=== PATIENT | male | born 1965 | race Caucasian/White ===

== ENCOUNTER 2016-10-20 11:12 | Emergency (ER) | payer OTHER ==
--- NOTE | ~2016-10-20 | MR134 ---
[facility] A Service of [facility] & [facility] RADIOLOGY TEXT RESULTS PATIENT: EVELIN GARRISON JR LOCATION: [facility] : 65 UNIT #: [id number] AGE: [address]: Harry Kaur MD SEX: M ORDER DR: [id number] [facility] [address] [place], [place] [address] [id number] E MR#: [id number] Acc #: [id number] NAME: EVELIN GARRISON JR : 1965 SEX: M STUDY DATE/TIME: 10/20/2016 12:38 UNIT: [facility] ROOM: STUDY DESCRIPTION: MR MRA Neck Wo Contrast Attending Physician: Harry Kaur M.D. Ordering Physician: Harry Kaur M.D. Primary Care Physician: Karyn House A.P.R.N. MRI CENTER REPORT This report is preliminary unless electronic signature is present. EXAM Cervical carotid MR angiogram HISTORY Heaviness in the left eye beginning 1 day ago. Previous history of stroke. TECHNIQUE MR angiographic imaging was performed across the carotid bifurcations with 2-D [id number]-rb-[id number] and 3-D MRA techniques. FINDINGS Both bifurcations are widely patent. There is no evidence of stenosis by NASCET criteria. Antegrade flow is seen in both vertebral arteries with the left vertebral being more dominant. IMPRESSION Normal examination. No evidence of stenosis by NASCET criteria. Dictated by... Jeff Barrera M.D. THIS IS AN ELECTRONICALLY VERIFIED REPORT Jeff Barrera M.D. at 10/20/2016 5:02 PM Kong TD: 10/20/2016 14:18 JOB #: [id number] MRI CENTER REPORT Page 1 of 1 COPY
--- NOTE | ~2016-10-20 | EKG ---
PATIENT: EVELIN GARRISON UNIT #: [id number] Ventricular Rate: 83 BPM Atrial Rate: 83 BPM P-R Interval: 172 ms QRS Duration: 90 ms Q-T Interval: 370 ms QTC Calculation(Bezet): 434 ms P Highland: 76 degrees Calculated R Highland: 50 degrees Calculated T Highland: 49 degrees Diagnosis Line: Normal sinus rhythm Diagnosis Line: Normal ECG Diagnosis Line: When compared with ECG of 28-FEB-2016 14:13, Diagnosis Line: No significant change was found Diagnosis Line: Confirmed by LYNNE CEDENO MD ([id number]) on Diagnosis Line: 10/20/2016 10:27:32 PM INTERPRETING : CELE
--- NOTE | ~2016-10-20 | MR122 ---
[facility] A Service of [facility] & [facility] RADIOLOGY TEXT RESULTS PATIENT: EVELIN GARRISON JR LOCATION: [facility] : 65 UNIT #: [id number] AGE: [address]: Harry Kaur MD SEX: M ORDER DR: [id number] [facility] [address] [place], [place] [address] [id number] E MR#: [id number] Acc #: [id number] NAME: EVELIN GARRISON : 1965 SEX: M STUDY DATE/TIME: 10/20/2016 12:30 UNIT: [facility] ROOM: STUDY DESCRIPTION: MR MRA Head Wo Contrast Attending Physician: Harry Kaur M.D. Ordering Physician: Harry Kaur M.D. Primary Care Physician: Karyn House A.P.R.N. MRI CENTER REPORT This report is preliminary unless electronic signature is present. EXAM Intracranial MR angiogram HISTORY Heaviness in the left eye since yesterday with previous history of stroke. TECHNIQUE MR angiographic imaging was performed from the skull base to the [place]. FINDINGS The MR angiogram is normal. There is no evidence of aneurysm vascular malformation or major branch vessel occlusion. No significant intracranial stenosis is seen. IMPRESSION Normal. STAT * RESULT Dictated by... Jeff Barrera M.D. THIS IS AN ELECTRONICALLY VERIFIED REPORT Jeff Barrera M.D. at 10/20/2016 5:02 PM Kong TD: 10/20/2016 13:23 JOB #: [id number] MRI CENTER REPORT Page 1 of 1 COPY
--- NOTE | ~2016-10-20 | MR18 ---
[facility] A Service of [facility] RADIOLOGY TEXT RESULTS PATIENT: EVELIN GARRISON JR LOCATION: [facility] : 65 UNIT #: [id number] AGE: [address]: Harry Kaur MD SEX: M ORDER DR: [id number] [facility] [address] [place], [place] [address] [id number] E MR#: [id number] Acc #: [id number] NAME: EVELIN GARRISON : 1965 SEX: M STUDY DATE/TIME: 10/20/2016 12:11 UNIT: [facility] ROOM: STUDY DESCRIPTION: MR Brain Wo Contrast Attending Physician: Harry Kaur M.D. Ordering Physician: Harry Kaur M.D. Primary Care Physician: Karyn House A.P.R.N. MRI CENTER REPORT This report is preliminary unless electronic signature is present. EXAM Brain MRI. HISTORY Heaviness in the left eye beginning yesterday. Previous history of stroke. TECHNIQUE Multiplanar imaging of the brain was performed with short and long TR. FINDINGS On diffusion weighted images, there is no evidence of abnormal restricted diffusion to suggest a recent infarct. The routine brain images show mild chronic ischemic changes in the periventricular deep white matter bilaterally. There is no evidence of mass lesion, hemorrhage, or edema. Temporal lobes are symmetric. Extraaxial structures are unremarkable. IMPRESSION Mild atrophy with mild chronic ischemic changes around the ventricles. Otherwise negative. STAT * RESULT Dictated by... Jeff Barrera M.D. THIS IS AN ELECTRONICALLY VERIFIED REPORT Jeff Barrera M.D. at 10/20/2016 5:02 PM BEAR/teressa TD: 10/20/2016 13:26 JOB #: [id number] [facility] A Service of [facility] RADIOLOGY TEXT RESULTS PATIENT: EVELIN GARRISON JR LOCATION: [facility] #: [id number] : [birth year] UNIT #: [id number] AGE: [address]: Harry Kaur MD SEX: M ORDER DR: MRI CENTER REPORT Page 1 of 1 COPY
[2016-10-20 11:05] LABS: BASOPHIL# 0.1 X10e3 (0-0.3); BASOPHIL% 0.9 % (0-2.5); EOSINOPHIL# 0.1 X10e3 (0-0.7); HEMATOCRIT 42.6 % (38.0-50.0); HEMOGLOBIN 14.5 gm/dL (13.0-16.0); LYMPHOCYTE# 2.1 X10e3 (1.0-3.5); LYMPHOCYTE% 28.9 % (17.0-45.0); MEAN CELL VOLUME 89.6 FL (83-96); MEAN CORPUSCULAR HEMOGLOBIN 30.4 PG (28-34); MEAN CORPUSCULAR HGB CONC 33.9 g/dL (30-36); MEAN PLATELET VOLUME 7.8 FL (6.5-11.5); MONOCYTE# 0.6 X10e3 (0-1.0); MONOCYTE% 8.3 % (3.0-12.0); NEUTROPHIL# 4.3 X10e3 (1.5-7.1); NEUTROPHIL% 59.9 % (40-75); PLATELET COUNT 209 X10e3 (140-420); RED BLOOD COUNT 4.76 X10e (3.90-5.60); RED CELL DISTRIBUTION WIDTH 13.7 % (11.0-15.5); WHITE BLOOD COUNT 7.2 X10e3 (4.0-10.5)
[2016-10-20 11:08] LABS: DIFF IND NO
[~2016-10-20 11:12] MED LIST: AMOXICILLIN PO; ANTI-FUNGAL15 GM TP; AUGMENTIN PO; BACTRIM DS TABL1 TA1 PO; BYETTA10 MCG/0.0 INJ; FLEXERIL; FLEXERIL PO; FLEXERIL10 MG PO; FLONASE16 GM; GLUCOPHAGE XR500 MG PO; GLUCOPHAGE500 MG PO; HUMALOG MIX 75/10 ML SUBQ; HUMALOG100 U/ML SUBQ; HUMULIN 70/30 V10 ML; IBUPROFEN PO; IBUPROFEN800 MG PO; KEFLEX PO; LORTAB 7.5-5001 TAB PO; METFORMIN HCL1000 M1 PO; PRILOSEC40 MG PO; UNKNOWN INSULIN; VICODIN 5/500 T1 TAB PO; ZANTAC150 MG PO
[2016-10-20 11:23] LABS: POC - CKMB 1.8 ng/mL (0.0-7.9); POC - TROPONIN <0.05 ng/mL (<=0.05)
[2016-10-20 11:26] LABS: INR 1.1; PARTIAL THROMBOPLASTIN TIME 26.1 SECONDS (23.5-31.3); PROTHROMBIN TIME (PATIENT) 11.1 SECONDS (9.6-11.5)
[2016-10-20 12:02] LABS: ALBUMIN SERUM 3.8 g/dL (3.5-5.0); BILIRUBIN, DIRECT 0.1 mg/dL (0.0-0.2); BILIRUBIN,INDIRECT 0.6 mg/dL (0.0-0.9); BILIRUBIN,TOTAL 0.7 mg/dL (0.2-2.0); CALCIUM SERUM 8.9 mg/dL (8.4-10.2); GLOM FILT RATE Estimated 86.8 mL/min (>60); POTASSIUM 4.8 mmol/L (3.5-5.1); PROTEIN TOTAL SERUM 7.2 g/dL (6.0-8.3)
== END 2016-10-20 13:42 | disposition home or self-care (01) ==
LOC: CED 11:12
PROVIDERS: Emergency Medicine
DX: G45.9 Transient cerebral ischemic attack, unspecified (principal); E11.9 Type 2 diabetes mellitus without complications; Z88.8 Allergy status to other drugs, medicaments and biological substances
CPT/HCPCS: 70544; 70547; 70551; 80048; 80076; 82553; 82947; 84484; 85025; 85610; 85730; 93005; 99291

== ENCOUNTER → 2016-12-08 | Outpatient (CLI) | payer OTHER ==
[~2016-12-08] MED LIST changes: +ACETAMINOPHEN650 M1 PO; +BENZONATATE200 M1 PO; +CLOPIDOGREL75 MG PO; +DOXYCYCLINE HY100 M4 PO; +ESCITALOPRAM OX20 MG PO; +GLUCOTROL PO; +INVOKANA300 MG PO; +MELOXICAM15 MG PO; +METFORMIN HCL500 M1 PO; +NEURONTIN100 MG PO; +PRO-AMATINE5 M2 PO; +TRADJENTA5 MG PO; +ZOCOR10 MG PO; +ZOFRAN PO
--- NOTE | ~2016-12-08 | CR127 ---
[facility] A [facility] of [facility] RADIOLOGY TEXT RESULTS PATIENT: EVELIN GARRISON JR LOCATION: [facility] : 65 UNIT #: [id number] AGE: [address]: RUSS VALENTINO APRN SEX: M ORDER DR: [id number] [facility] [address] [place], [place] [address] [id number] O MR#: [id number] Acc #: [id number] NAME: EVELIN GARRISON : 1965 SEX: M STUDY DATE/TIME: 12/08/2016 13:00 UNIT: [facility] ROOM: STUDY DESCRIPTION: CR Foot Complete Min 3 View Rt Attending Physician: Russ Valentino R.N. Referring Physician: Russ Valentino R.N. Ordering Physician: Russ Valentino R.N. Primary Care Physician: Russ Valentino R.N. MEDICAL IMAGING REPORT This report is preliminary unless electronic signature is present EXAM Right foot 3, views, 12/08/16, 1300 hours. CLINICAL HISTORY Pain in lateral side of right foot for 3 days. History of previous needle stuck in foot. No new injury. COMPARISON Right ankle film, 01/25/16. No prior right foot film. FINDINGS AP, lateral and oblique views demonstrate overall normal bone density. There is a metallic linear foreign body measuring 1 mm x 10 mm in the plantar soft tissues deep to the head of the first metatarsal adjacent to the sesamoid bones which by history is chronic. There is no acute fracture. Question is raised of mild periosteal thickening along the proximal shaft of the fourth metatarsal which could indicate a healed or healing stress fracture. IMPRESSION 1. There is a 1 mm x 10 mm metallic foreign body in the plantar soft tissues adjacent to the distal first metatarsal which by history is chronic. 2. There is no definite fracture or dislocation. 3. Question periosteal thickening along the proximal shaft of the fourth metatarsal which could indicate a healed or healing stress fracture. Dictated by... Marcia Almonte M.D. THIS IS AN ELECTRONICALLY VERIFIED REPORT Marcia Almonte M.D. at 12/08/2016 8:03 PM [facility] A Service of [facility] RADIOLOGY TEXT RESULTS PATIENT: EVELIN GARRISON JR LOCATION: [facility] #: [id number] : [birth year] UNIT #: [id number] AGE: [address]: RUSS VALENTINO APRN SEX: M ORDER DR: LOREN/adebayo TD: 12/08/2016 15:12 JOB #: [id number] MEDICAL IMAGING REPORT Page 1 of 1 COPY
== END | disposition home or self-care (01) ==
LOC: CRAD 12:22
DX: M79.671 Pain in right foot (principal); M79.5 Residual foreign body in soft tissue
CPT/HCPCS: 73630

== ENCOUNTER 2017-01-20 13:09 | Emergency (ER) | payer OTHER ==
[~2017-01-20] VITALS: Ht 167.6 cm; Wt 113.4 kg
--- NOTE | ~2017-01-20 | CR63 ---
[facility] A Service of [facility] & [facility] RADIOLOGY TEXT RESULTS PATIENT: EVELIN GARRISON JR LOCATION: [facility] : 65 UNIT #: [id number] AGE: [address]: Estela Sanderson APRN SEX: M ORDER DR: [id number] [facility] [address] [place], [place] [address] [id number] E MR#: [id number] Acc #: [id number] NAME: EVELIN GARRISON JR : 1965 SEX: M STUDY DATE/TIME: 01/20/2017 UNIT: [facility] ROOM: STUDY DESCRIPTION: CR Chest 2 View Attending Physician: Estela Sanderson A.P.R.N. Ordering Physician: Ed Doctor [id number] [facility] Primary Care Physician: Katie Valentino MEDICAL IMAGING REPORT This report is preliminary unless electronic signature is present EXAM Chest 2 views 01/20/2017 1359 hours HISTORY 51-year-old man with 3-week history of cough, shortness of air and congestion. COMPARISON 06/22/2016 FINDINGS Upright PA and lateral views of the chest are performed. The lateral view is degraded by motion. The cardiac, mediastinal and hilar contours are normal. The lungs are clear and there are no effusions. IMPRESSION 1. The lateral view is degraded by motion. 2. There are no acute cardiopulmonary findings. The lungs are clear and there are no effusions. Dictated by... Marcia Almonte M.D. THIS IS AN ELECTRONICALLY VERIFIED REPORT Marcia Almonte M.D. at 01/22/2017 9:24 AM M/manjula TD: 01/20/2017 15:20 JOB #: [id number] MEDICAL IMAGING REPORT Page 1 of 1 COPY
[~2017-01-20 13:09] MED LIST changes: -ACETAMINOPHEN650 M1 PO; -BENZONATATE200 M1 PO; -CLOPIDOGREL75 MG PO; -DOXYCYCLINE HY100 M4 PO; -ESCITALOPRAM OX20 MG PO; -GLUCOTROL PO; -INVOKANA300 MG PO; -MELOXICAM15 MG PO; -METFORMIN HCL500 M1 PO; -NEURONTIN100 MG PO; -PRO-AMATINE5 M2 PO; -TRADJENTA5 MG PO; -ZOCOR10 MG PO; -ZOFRAN PO
[2017-01-20 13:41] LABS: INFLUENZA A NEG (NEG); INFLUENZA B NEG (NEG)
== END 2017-01-20 14:45 | disposition home or self-care (01) ==
LOC: CED 13:09 → CFTX 13:09
PROVIDERS: Nurse Practitioner
DX: J06.9 Acute upper respiratory infection, unspecified (principal); T16.2XXA Foreign body in left ear, initial encounter; X58.XXXA Exposure to other specified factors, initial encounter; Y92.9 Unspecified place or not applicable; K42.9 Umbilical hernia without obstruction or gangrene; Z98.890 Other specified postprocedural states; Z79.82 Long term (current) use of aspirin; Z88.8 Allergy status to other drugs, medicaments and biological substances; Z79.899 Other long term (current) drug therapy
CPT/HCPCS: 69200; 71020; 87651; 87804; 94640; 99283

== ENCOUNTER 2017-02-27 17:02 | Inpatient (IN) | payer OTHER ==
[~2017-02-27] VITALS: Ht 170.2 cm; Wt 117.6 kg
--- NOTE | ~2017-02-27 | EKG ---
PATIENT: EVELIN GARRISON UNIT #: [id number] Ventricular Rate: 108 BPM Atrial Rate: 108 BPM P-R Interval: 184 ms QRS Duration: 90 ms Q-T Interval: 346 ms QTC Calculation(Bezet): 463 ms P Roff: 56 degrees Calculated R Roff: 52 degrees Calculated T Roff: 51 degrees Diagnosis Line: Sinus tachycardia Diagnosis Line: Otherwise normal ECG Diagnosis Line: When compared with ECG of 20-OCT-2016 10:52, Diagnosis Line: No significant change was found Diagnosis Line: Confirmed by CLARK DUVAL MD ([id number]) on 03/01/2017 Diagnosis Line: 1:59:26 PM INTERPRETING MD: MUKUND STALLINGS
--- NOTE | ~2017-02-27 | HP ---
Unit #: [id number] #: [id number] Patient: EVELIN GARRISON JR [id number] [address] [place], [place] [address] [id number] I MR#: [id number] NAME: EVELIN GARRISON JR ROOM: 304 Age: 51 Sex: M Admission Date: 02/27/2017 : 1965 Attending Physician: Elías Ortega M.D. Primary Care Physician: Katie Valentino HISTORY AND PHYSICAL CHIEF COMPLAINT Chills, shaking, fever, hypotension. DISCUSSION This is a 51-year-old gentleman who has a past medical history significant for history of left sided frontal stroke with right side weakness, diabetes, orthostatic hypotension, dyslipidemia, obesity, anxiety, depression, obstructive sleep apnea. He presented to emergency room with chief complaint of having shaking and chills. He said this morning he feels some stomach upset, then he went to sleep and then woke up with shaking and chills and he was brought to emergency room and eventually, the blood pressure was 107/92. Eventually, he has a fever of 101 in the emergency room and blood pressure dropped in the 80s and he has some redness and pain. Also complaining of right foot pain but denies cough, denies dysuria, sore throat, headache or any other complaint. PAST MEDICAL HISTORY 1. History of asthma. 2. History of left side frontal stroke with right side weakness. 3. Diabetes. 4. Orthostatic hypotension. 5. Dyslipidemia. 6. History of sleep apnea which has been resolved since he lost more than 100 pounds. 7. Anxiety/depression. PAST SURGICAL HISTORY 1. History of EGD and colonoscopy. 2. Circumcision. 3. Umbilical hernia repair. ALLERGIES Allergic to diphenhydramine with sleepiness for several days. SOCIAL HISTORY He lives at home. He denies alcohol. Denied smoking or any illicit drug use. MEDICATIONS Medication from home is followin. Zocor 10 mg at bedtime. 2. Meloxicam 15 mg daily. 3. Neurontin 100 mg 3x daily. 4. Benzonatate 200 mg q.8 hour p.r.n. Unit #: [id number] #: [id number] Patient: EVELIN GARRISON JR 5. Zofran 4 mg 3x a day p.r.n. 6. Metformin 500 twice a day. 7. Plavix 75 mg daily. 8. Invokana 300 mg daily. 9. Midodrine 5 mg 3x a day. 10. Tradjenta 5 mg daily. 11. Lexapro 20 mg daily. 12. Glipizide 5 mg twice a day. FAMILY HISTORY Noncontributory. REVIEW OF SYSTEMS All review of system negative except in History of Present Illness. PHYSICAL EXAMINATION On examination, middle aged man lying in the bed comfortably, currently not in any distress. VITAL SIGNS: Current vitals are following - temperature is maximum 101, heart rate 110, respiratory 20, blood pressure 107/92. GENERAL: On general examination, he is alert, oriented x3, comfortable, not in any distress. HEENT: Pupils equal, reactive to light and accommodation. Head is normocephalic. No icterus. NECK: Supple. No JVD, no thyromegaly. LUNGS: Clear to auscultation, no rhonchi, no wheezing. HEART: S1, S2. Regular rate and rhythm. ABDOMEN: Soft, nontender, nondistended. Bowel sound positive. EXTREMITIES: Right foot on the dorsal aspect positive mild erythema and warm but no edema. Positive posterior tibial and dorsalis pedis pulses. NEURO: Mild right side weakness which is chronic. Cranial nerves II-XII intact. PSYCH: Normal mood/affect. SKIN: Warm and dry. DIAGNOSTIC STUDIES LABORATORY: Laboratory workup is following - UA is negative. Lactic acid level 1.2. Troponin less than 0.05. Chemistry - sodium 137, potassium 3.8, chloride 104, glucose 150, BUN 16, creatinine 1.1. LFT within normal limit. White count 15,000, hemoglobin 14, hematocrit 40, platelet 202. INR is 1.1. Troponin less than 0.30. IMAGING: Chest x-ray negative. CT head is negative. ASSESSMENT AND PLAN 1. Fever with hypotension, most likely is from right foot cellulitis which is early. Will start the patient on Zosyn and vancomycin and monitor. 2. Will get followup x-ray of right foot. Unit #: [id number] #: [id number] Patient: MELIEVELIN JR 3. Diabetes. Continue home medication. Place on sliding scale. 4. History of left side frontal stroke with mild right side weakness. 5. Dyslipidemia. 6. Anxiety and depression. 7. History of orthostatic hypotension. 8. Obstructive sleep apnea which has been resolved with weight loss. Currently not on CPAP. 9. Obesity. 10. Hypotension. Will place on IV fluid normal saline and monitor. 11. DVT prophylaxis. Will place the patient on Lovenox. Dictated by Lilian Palma/shady TD: 02/28/2017 10:43 JOB #: [id number] HISTORY AND PHYSICAL Page 1 of 1 X X HISTORY AND PHYSICAL
--- NOTE | ~2017-02-27 | DS ---
Unit #: [id number] #: [id number] Patient: EVELIN GARRISON JR [id number] [address] [address] [id number] I MR#: [id number] NAME: EVELIN GARRISON JR ROOM: 304 Age: 51 Sex: M Admission Date: 02/27/2017 : 1965 Discharge Date: 03/01/2017 Attending Physician: Diego Torres M.D. Primary Care Physician: Katie Valentino DISCHARGE SUMMARY PRIMARY DIAGNOSIS Severe sepsis secondary to a right foot cellulitis, dorsolateral aspect. SECONDARY DIAGNOSES 1. Diabetes mellitus type 2. 2. History of left side stroke with right hemiparesis. 3. History of orthostatic hypotension. 4. History of obstructive sleep apnea, reportedly resolved. 5. Morbid obesity. 6. History of retained needle fragment in the plantar portion of his foot near the second metatarsal on the opposite side of the patient's cellulitis. This has been present since childhood, per patient. HOSPITAL COURSE Patient was admitted to the hospital, was treated with vancomycin and Zosyn with good initial response. No cultures were done. The patient's fevers improved as did his white blood cell count and the patient's foot swelling and redness were both improving markedly. Patient is being switched to doxycycline for an additional eight days with plans to follow up with his PCP next week. He was given strict instructions to return to the emergency room if he has recurrent fevers, chills or worsening foot redness. Imaging done during this hospitalization includes plain x-ray of the right foot 3 views, CT of the head and portable chest x-ray. DISCHARGE DISPOSITION To home. DISCHARGE STATUS Stable. DISCHARGE ACTIVITY Ad raz with the caveat that the patient should elevate his foot for an hour 2x daily for the next week. DISCHARGE DIET Diabetic diet. DISCHARGE MEDICATIONS 1. Tylenol 650 p.o. q.6 hours p.r.n. for pain. 2. Neurontin 100 mg p.o. t.i.d. 3. Escitalopram 20 mg p.o. daily. 4. Metformin 500 mg p.o. b.i.d. Unit #: [id number] #: [id number] Patient: EVELIN GARRISON JR 5. Zofran 4 mg p.o. t.i.d. p.r.n. nausea. 6. Tessalon Perles 200 mg p.o. q.8 hours p.r.n. cough. 7. Tradjenta 5 mg p.o. daily. 8. Zocor 10 mg p.o. q. h.s. 9. Midodrine 5 mg p.o. t.i.d. 10. Mobic 15 mg p.o. daily. 11. Plavix 75 mg p.o. daily. 12. Invokana 300 mg p.o. daily. 13. Glucotrol 5 mg p.o. b.i.d. 14. Doxycycline 100 mg p.o. b.i.d. for eight days. The only new medication is the doxycycline. The remainder are continuations of home medications. Dictated by... Diego Torres M.D. KERLINE/shady TD: 03/04/2017 06:01 JOB #: [id number] DISCHARGE SUMMARY Page 1 of 1 X Diego Torres MD X DISCHARGE SUMMARY
--- NOTE | ~2017-02-27 | CT71 ---
[facility] A Service of [facility] RADIOLOGY TEXT RESULTS PATIENT: EVELIN GARRISON JR LOCATION: [facility] 304-01 : [birth year] UNIT #: [id number] AGE: [address]: Elías rOtega MD SEX: M ORDER DR: [id number] [facility] [address] [place] [address] [place], [place] [address] [id number] I MR#: [id number] Acc #: [id number] NAME: EVELIN GARRISON JR : 1965 SEX: M STUDY DATE/TIME: 02/27/2017 18:02 UNIT: [address] ROOM: [facility] STUDY DESCRIPTION: CT Head Wo Contrast Attending Physician: Elías Ortega M.D. Ordering Physician: Andrea Mcnamara M.D. Primary Care Physician: Katie Valentino Aprn MEDICAL IMAGING REPORT This report is preliminary unless electronic signature is present EXAM Head CT no contrast 02/27/2017 INDICATION Shaking and jerking that started prior to arrival today, stroke last year, same symptoms today. Right-sided deficit from prior stroke. TECHNIQUE Noncontrast CT brain was performed. Comparison 06/24/2016. This CT examination was performed with one or more of the following radiation dose reduction techniques: automatic exposure control, adjustment of mA and/or kV according to patient size, and iterative reconstruction. FINDINGS There is mild generalized cerebral atrophy. Sulci and ventricles otherwise unremarkable. No midline shift. No evidence of acute intracranial hemorrhage. There is no mass, mass effect or edema to suggest acute infarct. No extraaxial fluid collections are present. Globes are intact. Bones are intact. Mild chronic-appearing maxillary sinus disease. IMPRESSION Mild atrophy. Otherwise negative noncontrast CT of the brain and no significant change. Dictated by... Barry Lopez M.D. THIS IS AN ELECTRONICALLY VERIFIED REPORT Barry Lopez M.D. at 02/28/2017 11:23 PM TOÑA/pamela [facility] A Service of [facility] RADIOLOGY TEXT RESULTS PATIENT: EVELIN GARRISON JR LOCATION: [facility] 304-01 : [birth year] UNIT #: [id number] AGE: [address]: Elías Ortega MD SEX: M ORDER DR: TD: 02/28/2017 08:49 JOB #: [id number] MEDICAL IMAGING REPORT Page 1 of 1 COPY
--- NOTE | ~2017-02-27 | CO ---
Unit #: [id number] #: [id number] Patient: EVELIN GARRISON JR [id number] [facility] [address] [place], [place] [address] [id number] I MR#: [id number] NAME: EVELIN GARRISON JR ROOM: 304 Age: 51 Sex: M Admission Date: 02/27/2017 : 1965 Attending Physician: Diego Torres M.D. Primary Care Physician: Katie Valentino Aprn Consultation Date: 02/28/2017 CONSULTATION REPORT REASON FOR CONSULTATION Depression, anxiety. HISTORY OF PRESENT ILLNESS Mr. Evelin Garrison is a 51-year-old male seen in room 304, bed 1 on February 28, 2017 at [facility]. Patient reported that he was admitted due to chills, shakes, fever, and hypotension. Patient dressed casually, lying comfortably in bed. The patient reported that he has an infection in his right foot. Patient denied any suicidal or homicidal ideation. Denied any psychotic symptoms, but reported feeling sad, depressed. Patient currently on Lexapro 20 mg daily for depression. Reported having a lot of problems with anxiety. PAST PSYCHIATRIC HISTORY Remarkable for history of depression, anxiety. No history of any suicide attempt or any inpatient treatment. MEDICAL HISTORY Patient has a history of asthma, left-sided frontal stroke with right-sided weakness, diabetes, orthostatic hypotension, dyslipidemia, history of sleep apnea. MEDICATION HISTORY 1. Zocor. 2. Meloxicam. 3. Neurontin. 4. Zofran. 5. Metformin. 6. Plavix. 7. Invokana. 8. Lexapro 20 mg daily. 9. Glipizide. ALLERGIES Diphenhydramine. FAMILY HISTORY AND SOCIAL HISTORY Patient has a good support system. No history of any abuse. Patient denied any use of any alcohol or drugs. REVIEW OF SYSTEMS Complete review of systems is unremarkable. Patient's vital signs are 98.4, 81, 16, 125/84. Oxygen saturation 97%. Unit #: [id number] #: [id number] Patient: EVELIN GARRISON JR MENTAL STATUS EXAMINATION General appearance: Patient dressed casually in hospital attire, lying comfortably in bed. Attention span and concentration fair. Speech regular rate, coherent. Oriented in time, place, and person. Mood and affect sad, dysphoric, anxious. Thought process coherent. Thought content: Patient denied any thoughts of harming self or others or any psychotic symptoms but reported having anxiety. Recent and remote memory fair. Language intact. Fund of knowledge fair. Insight and judgment fair to slightly impaired. DIAGNOSES PSYCHIATRIC: Major depressive disorder, recurrent, severe, F33.2. Anxiety disorder, not otherwise specified, F40.01. SECONDARY DIAGNOSIS: Deferred. MEDICAL DIAGNOSIS: Please refer to H and P. STRESSORS: Psychosocial stressors. ASSESSMENT AND PLAN 1. Supportive psychotherapy and psychoeducation provided to patient. 2. Educated about benefits and side effects of medications and course and prognosis of illness. 3. Advised to continue with Lexapro and add Vistaril 25 mg three times a day for anxiety. If needed, consider further adjustment of medication. Please feel free to call if any questions, . Also, advised patient to follow up in outpatient program. Also, given crisis line number, . Dictated by... Neno Turner M.D. PARAM/zulema TD: 03/02/2017 09:25 JOB #: [id number] CONSULTATION REPORT Page 1 of 1 X Neno Turner MD CONSULTATION REPORT
--- NOTE | ~2017-02-27 | CR127 ---
[facility] A Service of [facility] RADIOLOGY TEXT RESULTS PATIENT: EVELIN GARRISON JR LOCATION: [facility] 304-01 : [birth year] UNIT #: [id number] AGE: [address]: Elías Ortega MD SEX: M ORDER DR: [id number] [facility]. [place], [place] [address] [id number] MR#: [id number] Acc #: [id number] NAME: EVELIN GARRISON JR : 1965 SEX: M STUDY DATE/TIME: 02/27/2017 21:02 UNIT: [address] ROOM: [facility] STUDY DESCRIPTION: CR Foot Complete Min 3 View Rt Attending Physician: Elías Ortega M.D. Ordering Physician: Andrea Mcnamara M.D. Primary Care Physician: Katie Valentino MEDICAL IMAGING REPORT This report is preliminary unless electronic signature is present EXAM Right foot, 02/27/2017 INDICATIONS Swelling and redness today being treated for the past 3 months. TECHNIQUE Three views of the right foot compared with 12/08/16 FINDINGS Redemonstration of a metallic retained foreign body in the plantar soft tissues adjacent to the head of the second metatarsal measuring up to about 10 mm. No acute fracture. There are degenerative changes in the midfoot. There is mild dorsal soft tissue swelling. Atherosclerotic calcifications are present. Calcaneal spur. IMPRESSION 1. No acute fracture. 2. Retained opaque foreign body in the plantar soft tissues measuring 10 mm unchanged. 3. Degenerative changes in the midfoot and dorsal soft tissue swelling to a mild degree. 4. Atherosclerotic disease. Dictated by... Barry Lopez M.D. THIS IS AN ELECTRONICALLY VERIFIED REPORT Barry Lopez M.D. at 02/28/2017 11:31 PM Mayi TD: 02/28/2017 12:28 [facility] A Service of [facility] RADIOLOGY TEXT RESULTS PATIENT: EVELIN GARRISON JR LOCATION: [facility] 304-01 : [birth year] UNIT #: [id number] AGE: [address]: Elías Ortega MD SEX: M ORDER DR: JOB #: [id number] MEDICAL IMAGING REPORT Page 1 of 1 COPY
--- NOTE | ~2017-02-27 | CR72 ---
[facility] A Service of [facility] & [facility] RADIOLOGY TEXT RESULTS PATIENT: EVELIN GARRISON JR LOCATION: [facility] : [birth year] UNIT #: [id number] AGE: [address]: Elías Ortega MD SEX: M ORDER DR: [id number] [facility]. [place], [place] [address] [id number] I MR#: [id number] Acc #: [id number] NAME: EVELIN GARRISON JR : 1965 SEX: M STUDY DATE/TIME: 02/27/2017 17:47 UNIT: [facility] PCU ROOM: [facility] STUDY DESCRIPTION: CR Chest Single View Portable Attending Physician: Elías Ortega M.D. Ordering Physician: Andrea Mcnamara M.D. Primary Care Physician: Katie Valentino Aprn MEDICAL IMAGING REPORT This report is preliminary unless electronic signature is present EXAM Frontal chest 02/27/2017 INDICATION 51-year-old male with shaking, chest pain, mild congestion, history of stroke, symptoms began 3 hours ago. TECHNIQUE Frontal chest compared with 01/20/2017. FINDINGS PA and lateral examination of the chest upright shows a good expansion of the parenchyma with a normal distribution of the pulmonary vascularity. There is no indication of congestion, effusion, infiltrate, tumor, or nodular density. The pleural reflections and diaphragmatic contours are normal. The cardiac silhouette and mediastinal anatomy is within normal limits. IMPRESSION Normal chest. Dictated by... Barry Lopez M.D. THIS IS AN ELECTRONICALLY VERIFIED REPORT Barry Lopez M.D. at 02/28/2017 11:23 PM TOÑA/pamela TD: 02/28/2017 08:57 JOB #: [id number] MEDICAL IMAGING REPORT [facility] A Service of [facility] & [facility] RADIOLOGY TEXT RESULTS PATIENT: EVELIN GARRISON JR LOCATION: [facility] : 65 UNIT #: [id number] AGE: [address]: Elías Ortega MD SEX: M ORDER DR: Page 1 of 1 COPY
[2017-02-27 18:02] LABS: POC - CKMB 2.1 ng/mL (0.0-7.9); POC - TROPONIN <0.05 ng/mL (<=0.05)
[2017-02-27 18:05] LABS: BASOPHIL# 0.1 X10e3 (0-0.3); BASOPHIL% 0.4 % (0-2.5); EOSINOPHIL# 0.1 X10e3 (0-0.7); EOSINOPHIL% 0.5 % (0.0-7.0); HEMATOCRIT 40.6 % (38.0-50.0); LYMPHOCYTE# 1.2 X10e3 (1.0-3.5); LYMPHOCYTE% 7.7 % (17.0-45.0); MEAN CELL VOLUME 89.4 FL (83-96); MEAN CORPUSCULAR HEMOGLOBIN 30.8 PG (28-34); MEAN CORPUSCULAR HGB CONC 34.5 g/dL (30-36); MEAN PLATELET VOLUME 8.1 FL (6.5-11.5); MONOCYTE# 1.4 X10e3 (0-1.0); MONOCYTE% 8.8 % (3.0-12.0); NEUTROPHIL# 12.6 X10e3 (1.5-7.1); NEUTROPHIL% 82.6 % (40-75); PLATELET COUNT 202 X10e3 (140-420); RED BLOOD COUNT 4.54 X10e (3.90-5.60); RED CELL DISTRIBUTION WIDTH 13.2 % (11.0-15.5); WHITE BLOOD COUNT 15.3 X10e3 (4.0-10.5)
[2017-02-27 18:06] LABS: DIFF IND YES
[2017-02-27 18:12] LABS: INR 1.1; PARTIAL THROMBOPLASTIN TIME 26.3 SECONDS (23.5-31.3); PROTHROMBIN TIME (PATIENT) 12.3 SECONDS (10.0-11.7)
[2017-02-27 18:17] LABS: PLATELET ESTIMATE NORMAL (NORMAL); RBC NORMAL YES
[2017-02-27 18:21] LABS: ALBUMIN SERUM 3.8 g/dL (3.5-5.0); BILIRUBIN, DIRECT 0.2 mg/dL (0.0-0.2); BILIRUBIN,INDIRECT 0.7 mg/dL (0.0-0.9); BILIRUBIN,TOTAL 0.9 mg/dL (0.2-2.0); BUN/CREATININE RATIO 14.54; CALCIUM SERUM 8.7 mg/dL (8.4-10.2); CREATININE SERUM 1.1 mg/dL (0.6-1.4); GLOM FILT RATE Estimated 77.3 mL/min (>60); POTASSIUM 3.8 mmol/L (3.5-5.1); PROTEIN TOTAL SERUM 6.8 g/dL (6.0-8.3)
[2017-02-27 20:09] LABS: POC - CKMB <1.0 ng/mL (0.0-7.9); POC - TROPONIN <0.05 ng/mL (<=0.05)
[2017-02-27 20:32] LABS: URINE SOURCE CLEAN CATCH
[2017-02-27] MEDS ORDERED: INVOKANA300 MG PO (20:37)
[2017-02-27] MEDS ORDERED: PRO-AMATINE5 M2 PO (20:38)
[2017-02-27 20:39] LABS: URINE APPEARANCE CLEAR; URINE BILIRUBIN NEG (NEG); URINE BLOOD NEG (NEG); URINE COLOR YELLOW; URINE GLUCOSE >1000 MG/DL (NEG); URINE KETONE NEG (NEG); URINE LEUKOCYTE ESTERASE NEG (NEG); URINE NITRATE NEG (NEG); URINE PROTEIN NEG (NEG); URINE SPECIFIC GRAVITY 1.033 (1.003-1.035); URINE UROBILINOGEN 0.2 MG/DL (NEG)
[2017-02-27] MEDS ORDERED: TRADJENTA5 MG PO (20:39)
[2017-02-27] MEDS ORDERED: GLUCOTROL PO (20:39)
[2017-02-27] MEDS ORDERED: ESCITALOPRAM OX20 MG PO (20:39)
[2017-02-27] MEDS ORDERED: NEURONTIN100 MG PO (20:40)
[2017-02-27] MEDS ORDERED: BENZONATATE200 M1 PO (20:41)
[2017-02-27] MEDS ORDERED: METFORMIN HCL500 M1 PO (20:42)
[2017-02-27] MEDS ORDERED: ZOFRAN PO (20:42)
[2017-02-27 20:43] LABS: CULTURE INDICATED? NO
[2017-02-27] MEDS ORDERED: CLOPIDOGREL75 MG PO (20:43)
[2017-02-27] MEDS ORDERED: ZOCOR10 MG PO (20:43)
[2017-02-27] MEDS ORDERED: MELOXICAM15 MG PO (20:44)
[2017-02-28 06:58] LABS: BASOPHIL# 0.1 X10e3 (0-0.3); BASOPHIL% 0.6 % (0-2.5); EOSINOPHIL# 0.1 X10e3 (0-0.7); EOSINOPHIL% 0.7 % (0.0-7.0); HEMATOCRIT 36.7 % (38.0-50.0); HEMOGLOBIN 12.6 gm/dL (13.0-16.0); LYMPHOCYTE# 2.2 X10e3 (1.0-3.5); LYMPHOCYTE% 16.9 % (17.0-45.0); MEAN CORPUSCULAR HGB CONC 34.5 g/dL (30-36); MEAN PLATELET VOLUME 7.8 FL (6.5-11.5); MONOCYTE# 1.6 X10e3 (0-1.0); MONOCYTE% 12.3 % (3.0-12.0); NEUTROPHIL# 8.9 X10e3 (1.5-7.1); NEUTROPHIL% 69.5 % (40-75); PLATELET COUNT 180 X10e3 (140-420); RED BLOOD COUNT 4.07 X10e (3.90-5.60); RED CELL DISTRIBUTION WIDTH 13.8 % (11.0-15.5); WHITE BLOOD COUNT 12.9 X10e3 (4.0-10.5)
[2017-02-28 07:04] LABS: DIFF IND NO
[2017-02-28 07:27] LABS: BUN/CREATININE RATIO 18.75; CALCIUM SERUM 8.2 mg/dL (8.4-10.2); CREATININE SERUM 0.8 mg/dL (0.6-1.4); GLOM FILT RATE Estimated 103.5 mL/min (>60); POTASSIUM 3.6 mmol/L (3.5-5.1)
[2017-03-01 05:14] LABS: HEMATOCRIT 36.3 % (38.0-50.0); HEMOGLOBIN 12.7 gm/dL (13.0-16.0); MEAN CELL VOLUME 89.2 FL (83-96); MEAN CORPUSCULAR HEMOGLOBIN 31.2 PG (28-34); MEAN CORPUSCULAR HGB CONC 34.9 g/dL (30-36); MEAN PLATELET VOLUME 8.1 FL (6.5-11.5); RED BLOOD COUNT 4.07 X10e (3.90-5.60); WHITE BLOOD COUNT 10.4 X10e3 (4.0-10.5)
[2017-03-01 06:35] LABS: CALCIUM SERUM 8.5 mg/dL (8.4-10.2); GLOM FILT RATE Estimated 86.8 mL/min (>60); POTASSIUM 3.6 mmol/L (3.5-5.1)
[2017-03-01] MEDS ORDERED: ACETAMINOPHEN650 M1 PO (09:42)
[2017-03-01] MEDS ORDERED: DOXYCYCLINE HY100 M4 PO (09:42)
== END 2017-03-01 10:47 | disposition home or self-care (01) | DRG 872 ==
LOC: CED 17:02 → C3A PCU 21:15 → CEDOF 21:15 → CED 21:19 → CEDOF 21:19 → C3A PCU 02-28 07:42 → CEDOF 02-28 07:42 → C3A PCU 03-01 07:08
PROVIDERS: Emergency Medicine; Internal Medicine
DX: A41.9 Sepsis, unspecified organism (principal); E11.628 Type 2 diabetes mellitus with other skin complications; F33.2 Major depressive disorder, recurrent severe without psychotic features; I69.351 Hemiplegia and hemiparesis following cerebral infarction affecting right dominant side; L03.115 Cellulitis of right lower limb; Z68.41 Body mass index [BMI] 40.0-44.9, adult; R65.20 Severe sepsis without septic shock; Z79.84 Long term (current) use of oral hypoglycemic drugs; E66.01 Morbid (severe) obesity due to excess calories; E78.5 Hyperlipidemia, unspecified; F41.9 Anxiety disorder, unspecified; I95.1 Orthostatic hypotension
CPT/HCPCS: 36415; 70450; 71010; 73630; 80048; 80076; 81003; 82553; 82947; 83605; 84484; 85025; 85027; 85610; 85730; 93005; 96360; 99285; J1650; J1815; J2543; J3370